=== PATIENT | male | born 1990 | race Caucasian/White ===

== ENCOUNTER 2017-01-22 09:22 | Emergency (ER) | payer SELFPAY ==
[~2017-01-22] VITALS: Ht 170.2 cm; Wt 80.7 kg
[2017-01-22 09:26] VITALS: BP 127/72
== END 2017-01-22 09:50 | disposition home or self-care (01) ==
LOC: ED 09:22
DX: R04.0 Epistaxis (principal)

== ENCOUNTER 2017-09-20 07:00 | Emergency (ER) | payer SELFPAY ==
[~2017-09-20] VITALS: Ht 165.1 cm; Wt 83.9 kg
[2017-09-20 07:06] VITALS: Ht 165.1 cm; Wt 83.9 kg
[2017-09-20 07:56] LABS: BASOPHIL % 0.2 % (0-2); PLATELET COUNT 223 x10^3mcL (130-400); RED CELL DISTRIBUTION WIDTH 13.6 % (11.5-14.5)
[2017-09-20 08:08] LABS: CARBON DIOXIDE 27.1 mmol/L (21-32); CHLORIDE SERUM 104 mmol/L (98-107); CREATININE SERUM 0.8 mg/dL (0.7-1.3); GFR1 > 60 mL/min; GLUCOSE SERUM 99 mg/dL (74-106); POTASSIUM SERUM 4.3 mmol/L (3.5-5.1); SODIUM SERUM 140 mmol/L (136-145)
[2017-09-20 08:13] LABS: ALBUMIN 3.9 g/dL (3.4-5.0); ALKALINE PHOSPHATASE 65 U/L (46-116); ALT/SGPT 71 U/L (16-63); AST/SGOT 25 U/L (15-37); BILIRUBIN TOTAL 0.7 mg/dL (0.20-1.00)
[2017-09-20 08:45] VITALS: BP 113/62
== END 2017-09-20 08:45 | disposition home or self-care (01) ==
LOC: ED 07:00
PROVIDERS: Emergency Medicine
DX: R07.9 Chest pain, unspecified (principal)
CPT/HCPCS: 36415; 83880; J1885; Q0092